=== PATIENT | male | born 1950 | race Caucasian/White ===

== ENCOUNTER 2020-02-01 23:10 | Observation (INO) | payer MEDICARE ==
[~2020-02-01] VITALS: Ht 185.4 cm; Wt 154.4 kg
[2020-02-01 23:20] VITALS: BP 140/72
[2020-02-01 23:28] LABS: ABSOLUTE EOSINOPHILS 0.1 thou/uL (0.0-0.7); ABSOLUTE MONOCYTES 0.7 thou/uL (0.0-1.2); ABSOLUTE NEUTROPHILS 4.9 thou/uL (1.6-8.1); BASOPHILS 0.6 %; HEMATOCRIT 35.9 % (42.0-52.0); HEMOGLOBIN 11.7 gm/dL (14.0-18.0); LYMPHOCYTES 15.1 %; MCH 30.4 pg (26.0-34.0); MCHC 32.6 g/dL (28.0-37.0); MCV 93.4 fL (80.0-100.0); MPV 8.1 fl. (7.2-11.1); NUCLEATED RBCS 0 /100WBC; PLATELET COUNT* 140 thou/uL (150-400); POLYS 72.3 %; RBC 3.84 mil/uL (4.50-6.00); RDW-CV 16.4 % (10.5-14.5); WBC 6.8 thou/uL (4.0-11.0)
[2020-02-01 23:37] LABS: CALCIUM 9.1 mg/dL (8.5-10.1); CREATININE 1.6 mg/dL (0.6-1.3); POTASSIUM 4.2 mmol/L (3.5-5.1)
[2020-02-01 23:41] LABS: ALBUMIN 3.6 g/dL (3.4-5.0); MAGNESIUM 2.2 mg/dL (1.8-2.4); TOTAL BILIRUBIN 0.6 mg/dL (<0.1-1.0); TOTAL PROTEIN 7.6 g/dL (6.4-8.2)
[2020-02-01 23:57] LABS: BE -1.6 mmol/L (-2 to +3); PO2 74.9 mmHg (75.0-100.0); pH 7.391 (7.340-7.450)
[2020-02-02] MEDS ORDERED: INSULIN (00:40)
[2020-02-02 02:36] LABS: URINE BILIRUBIN NEGATIVE (Negative); URINE BLOOD NEGATIVE (Negative); URINE CLARITY CLEAR; URINE COLOR YELLOW; URINE GLUCOSE-RANDOM NEGATIVE (Negative); URINE KETONES NEGATIVE (Negative); URINE LEUKOCYTES-REFLEX NEGATIVE (Negative); URINE NITRITE-REFLEX NEGATIVE (Negative); URINE PROTEIN NEGATIVE (Negative); URINE SPECIFIC GRAVITY 1.015 (1.005-1.030); URINE UROBILINOGEN 0.2 E.U./dl (0.2-1.0)
[2020-02-02 03:43] VITALS: BP 124/56
[2020-02-02 03:59] VITALS: BP 129/55
[2020-02-02 07:30] VITALS: BP 120/46
[2020-02-02] MEDS ORDERED: PROAIR HFA8.5 GM INH (13:31)
[2020-02-02] MEDS ORDERED: NOVOLIN R100 UNIT/1 SUBQ (13:31)
[2020-02-02] MEDS ORDERED: LASIX 40 MG TAB40 MG PO (13:31)
[2020-02-02] MEDS ORDERED: ELIQUIS5 MG PO (13:31)
[2020-02-02] MEDS ORDERED: NOVOLIN N100 UNIT/1 SUBQ (13:31)
[2020-02-02] MEDS ORDERED: ZOCOR20 MG PO (13:31)
[2020-02-02 13:42] VITALS: BP 120/46
[2020-02-02 13:57] VITALS: BP 120/46
[2020-02-03 02:06] LABS: GLYCOHEMOGLOBIN (HGB A1C) 5.5 % (4.8-5.6)
== END 2020-02-02 13:55 | disposition home or self-care (01) ==
LOC: M.ERS 23:10 → M.TBA-ER 02-02 03:03 → M.ORTHSURG 02-02 03:03
PROVIDERS: Internal Medicine; Personal Emergency Response Attendant; ADMIT Family Medicine; ATTEND Family Medicine
DX: R41.82 Altered mental status, unspecified (principal); G93.41 Metabolic encephalopathy; E11.649 Type 2 diabetes mellitus with hypoglycemia without coma; I48.91 Unspecified atrial fibrillation; E66.01 Morbid (severe) obesity due to excess calories; R60.9 Edema, unspecified; Z20.828 Contact with and (suspected) exposure to other viral communicable diseases; Z68.41 Body mass index [BMI] 40.0-44.9, adult; Z79.899 Other long term (current) drug therapy